=== PATIENT | female | born 2000 | race Caucasian/White ===

== ENCOUNTER 2022-03-06 13:29 | Emergency (ER) | payer OTHER, SELFPAY ==
[2022-03-06 13:35] VITALS: BP 103/67; PULSE 98; RESP 16; TEMP 36.9; O2SAT 100
--- NOTE | 2022-03-06 13:54 | ED.URI ---
HPI - URI/Sore Throat General Chief Complaint: Upper Respiratory Infection Stated Complaint: Sinus pain Time Seen by Provider: 03/06/22 13:54 Source: patient, RN notes reviewed and old records reviewed Mode of arrival: ambulatory Limitations: no limitations History of Present Illness HPI Narrative: 21-year-old female who presents to [facility] with complaints of sinus infection symptoms since Thursday. Patient reports that she has clear nasal drainage she has pressure to her face and frontal headache, has had temperature up to 100.4F, her ears feel clogged, her teeth hurt and she has dry cough, and some some sore throat. Patient reports that she has taken some Tylenol for her temperature and headache symptoms. She does voice history of sinusitis in the past with similar symptoms. Patient reports that she has had COVID vaccinations. MD elicited complaint: fever (up to 100.4), cough, sore throat, rhinorrhea, nasal congestion, sinus pain and other (headache and ear pressure) Pertinent past history: sinusitis Onset (ago): day(s) (3) Consistency: progressively worsening Severity: moderate Description of mucous: clear Able to tolerate fluids by mouth: Yes Exacerbating factors: swallowing and leaning forward Relieving factors: nothing Treatments prior to arrival: acetaminophen Related Data Allergies Allergy/AdvReac Type Severity Reaction Status Date / Time No Known Allergies Allergy Verified 03/06/22 13:34 Review of Systems Review of Systems: CONSTITUTIONAL: reports low grade fever highest of 100.4F, chills, or sweats. EYES: Denies visual changes, redness, or discharge. ENT: Positive rhinorrhea, congestion, sore throat, ear pressure CARDIOVASCULAR: Denies chest pain, palpitations, or edema. RESPIRATORY: Positive for dry cough denies dyspnea. GASTROINTESTINAL: Denies abdominal pain, nausea, vomiting, or diarrhea. GENITOURINARY: Denies dysuria or hematuria. SKIN: Denies rash or itching. MUSCULOSKELETAL: Denies back pain, joint pain, or myalgia. NEUROLOGIC: frontal headache,denies any numbness, or weakness. PSYCHIATRIC: Denies anxiety or depression. All systems reviewed & are unremarkable except as noted in HPI and below PMFSH Past Medical History Medical History (Updated 03/06/22 @ 14:24 by Vanessa Nova NP) Fracture of left foot Strain of hip flexor Surgical History Surgical History (Updated 03/06/22 @ 14:25 by Vanessa Nova NP) No history of previous surgery Social History Social History (Updated 03/06/22 @ 14:25 by Vanessa Nova NP) Smoking status: Never smoker Alcohol intake: current Alcohol use details: social but rare Substance use type: does not use Living arrangements: with family Gender identity (if verbalized by the patient): Female Comments At time of signature, agree with nursing past medical, surgical, social and family history. There is no relevant family history pertinent to the presenting complaint Exam Narrative: GENERAL: Well-appearing, well-nourished, and in no acute distress. HEAD: Normocephalic, atraumatic. EYES: PERRLA and EOMI. ENT: Nares red with turbinates swollen and red, right side especially, clear rhinorrhea no epistaxis. Mucous membranes moist.TM's normal but with dull light reflex, throat red no lesions or exudates, tonsils minimal swelling noted, post nasal drainage present. NECK: Supple. no lymphadenopathy CHEST: Clear to auscultation. No respiratory distress. dry cough, SAO2 100% on room air, no tachypnea HEART: Regular rate and rhythm. No murmur heard. Normal peripheral pulses. ABDOMEN: Soft, nontender, nondistended, normal active bowel sounds. EXTREMITIES: Normal range of motion. No edema. SKIN: Warm, dry, no rash. NEURO: No focal deficits. Alert and oriented x3. Course Course Level of Care: Express Care Visit Vital Signs Vital signs: Vital Signs Temperature 36.9 C 03/06/22 13:35 Pulse Rate 98 03/06/22 13:35 Respiratory Rate 16 03/06/22 1
== END 2022-03-06 14:20 | disposition home or self-care (01) ==
PROVIDERS: Emergency Provider Registered Nurse
DX: J32.9 Chronic sinusitis, unspecified (principal)
CPT/HCPCS: 99203; G0463

== ENCOUNTER 2022-09-30 09:01 | Emergency (ER) | payer OTHER, SELFPAY ==
--- NOTE | 2022-09-30 09:08 | ED.URI ---
HPI - URI/Sore Throat General Chief Complaint: Upper Respiratory Infection Stated Complaint: COUGH/SOB/CHEST & LUNG PAIN Time Seen by Provider: 09/30/22 09:12 Source: patient and RN notes reviewed Mode of arrival: ambulatory Limitations: no limitations History of Present Illness HPI Narrative: 22 y/o female presents for complaints of a nonproductive cough and a sore throat for one week. Patient states that she has been coughing so hard that it resulted in her throat bleeding. Patient endorses subjective wheezing and shortness of breath stating that it is difficult to lay on her side. Cough worse at night and early in the morning. Patient denies fevers, diaphoresis, coughing up blood, N/V/D, palpitations, CP, or sinus congestion. She has attempted Mucinex and claritin with minimal relief. She took two at home COVID tests on Thursday that were negative. MD elicited complaint: cough Related Data Allergies Allergy/AdvReac Type Severity Reaction Status Date / Time No Known Allergies Allergy Verified 03/06/22 13:34 Review of Systems Review of Systems: CONSTITUTIONAL: Denies chills, sweats, or fever EYES: Denies visual changes, redness, or discharge ENT: Per HPI CARDIOVASCULAR: Denies chest pain, palpitations, edema RESPIRATORY: Reports nonproductive cough. GASTROINTESTINAL: Denies abdominal pain, nausea, vomiting, diarrhea PMFSH Past Medical History Medical History Fracture of left foot Strain of hip flexor Surgical History Surgical History No history of previous surgery Social History Social History Smoking status: Never smoker Alcohol intake: current Alcohol use details: social but rare Substance use type: does not use Gender identity (if verbalized by the patient): Female Exam Narrative: GENERAL: well-appearing EYES: PERRLA, conjunctivae clear ENT: Mucous membranes moist. TMs pearly chan with dull light reflex bilaterally; no tragal tenderness. Oropharynx erythematous without lesions or exudate, no drooling, no hoarseness, no trismus, uvula midline, tonsils +1 NECK: Supple. No lymphadenopathy CHEST: Faint wheezing to bilateral upper lobes. No rhonchi, rales, or stridor. No respiratory distress, speaks in full sentences. HEART: Regular rate and rhythm. No murmur heard. SKIN: Warm, dry, no rash. NEURO: Alert and oriented x3. PSYCH: Normal mood and affect Course Course Emergency Course: Patient is aware of diagnosis, understands and agrees to treatment plan. Anticipatory guidance given. Patient agrees to follow-up as directed and is aware of reasons to seek care at the emergency department. Portions of this record may have been created with voice recognition software Level of Care: Express Care Visit Vital Signs Vital signs: Vital Signs Temperature 99.1 F 09/30/22 09:09 Pulse Rate 68 09/30/22 09:09 Respiratory Rate 16 09/30/22 09:09 Blood Pressure 103/80 09/30/22 09:09 Pulse Oximetry 100 09/30/22 09:09 Temperature 99.1 F 09/30/22 09:09 Pulse Rate 68 09/30/22 09:09 Respiratory Rate 16 09/30/22 09:09 Blood Pressure 103/80 09/30/22 09:09 Pulse Oximetry 100 09/30/22 09:09 reviewed MDM - URI/Sore Throat MDM Narrative Medical decision making narrative: Patient is appropriate for outpatient treatment and follow up. Discussed s/s that would require ED referral. Patient agrees to establish with a PCP for close follow up. List of providers given to patient with d/c paperwork. Differential Diagnosis Differential diagnosis: Likely upper respiratory infection, sinusitis and viral infection Discharge Plan Discharge Clinical Impression: Cough Qualifiers: Cough type: acute Qualified Code(s): R05.1 - Acute cough Patient Disposition: Home, Self-Care Condition: Stable Instructions:
[2022-09-30 09:09] VITALS: BP 103/80; PULSE 68; RESP 16; TEMP 37.3; O2SAT 100
== END 2022-09-30 09:40 | disposition home or self-care (01) ==
PROVIDERS: Emergency Provider Nurse Practitioner Family
DX: R05.1 Acute cough (principal); R06.02 Shortness of breath
CPT/HCPCS: 99213; G0463

== ENCOUNTER 2023-01-25 08:40 | Emergency (ER) | payer OTHER, SELFPAY ==
[2023-01-25 09:24] VITALS: BP 109/71; PULSE 78; RESP 16; TEMP 36.4; O2SAT 100
--- NOTE | 2023-01-25 10:07 | ED.URI ---
HPI - URI/Sore Throat General Chief Complaint: Upper Respiratory Infection Stated Complaint: SORE THROAT/HEADACHE/BACK PAIN Time Seen by Provider: 01/25/23 10:07 Source: patient, RN notes reviewed and old records reviewed Mode of arrival: ambulatory Limitations: no limitations History of Present Illness HPI Narrative: 22 year old presents to [facility] care with complaints of reoccurring sore throat for the past 2.5 weeks with some sinus drainage, headache, and some facial pressure with right side worse than left. Patient reports that she has had a dry cough. Patient states that she has been COVID vaccinated and she also has had flu shot.Patient reports that she has taken some OTC sinus medication and also NyQuil MD elicited complaint: sore throat, rhinorrhea, nasal congestion and other (headache) Onset (ago): week(s) (2.5) Pain scale (0-10): 5 Able to tolerate fluids by mouth: Yes Treatments prior to arrival: cold medicine and other (NyQuil) Related Data Allergies Allergy/AdvReac Type Severity Reaction Status Date / Time No Known Allergies Allergy Verified 03/06/22 13:34 Review of Systems Review of Systems: CONSTITUTIONAL: Denies malaise, chills, sweats, or fever. EYES: Denies visual changes, redness, or discharge. ENT: Reports rhinorrhea, congestion, facial sinus pain, no otalgia, positive sore throat. CARDIOVASCULAR: Denies chest pain, palpitations, or edema. RESPIRATORY: Reports dry cough.? Denies dyspnea. GASTROINTESTINAL: Denies abdominal pain, nausea, vomiting, diarrhea SKIN: Denies rash or itching. MUSCULOSKELETAL: Denies myalgia. NEUROLOGIC:reports headache. All systems reviewed & are unremarkable except as noted in HPI and below PMFSH Past Medical History Medical History (Updated 01/26/23 @ 00:00 by Sriram Tiwari) Fracture of left foot Strain of hip flexor Surgical History Surgical History (Updated 01/26/23 @ 20:57 by Vanessa Nova NP) [place] teeth extracted Social History Social History Smoking status: Never smoker Alcohol intake: current Alcohol use details: social but rare Substance use type: does not use Living arrangements: with family Gender identity (if verbalized by the patient): Female Comments At time of signature, agree with nursing past medical, surgical, social and family history. There is no relevant family history pertinent to the presenting complaint Exam Narrative: GENERAL: Well-appearing, well-nourished, and in no acute distress. HEAD: Normocephalic EYES: PERRLA, conjunctivae clear ENT: Nares clear, turbinates edematous and erythematous, clear discharge. Mucous membranes moist. TM pearly chan with dull light reflex bilaterally; no tragal tenderness. Oropharynx erythematous without lesions. Tonsils mildly enlarged and without exudate, no drooling, no hoarseness, no trismus, uvula midline, post nasal drainage NECK: Supple. No lymphadenopathy CHEST: Clear to auscultation, breath sounds equal. No wheezing, rhonchi, rales, or stridor. No respiratory distress, speaks in full sentences.dry cough, SAO2 100% on room air HEART: Regular rate and rhythm. No murmur heard. SKIN: Warm, dry, no rash. NEURO: Alert and oriented x3. PSYCH: Normal mood and affect Course Course Emergency Course: Patient is aware of diagnosis, understands and agrees to treatment plan.? Anticipatory guidance given.? Patient agrees to follow-up as directed and is aware of reasons to seek care at the emergency department. Portions of this record may have been created with voice recognition software Level of Care: Express Care Visit Vital Signs Vital signs: Vital Signs Temperature 36.4 C L 01/25/23 09:24 Pulse Rate 78 01/25/23 09:24 Respiratory Rate 16 01/25/23 09:24 Blood Pressure 109/71 01/25/23 09:24 Pulse Oximetry 100 01/25/23 09:24 Temperature 36.4 C L 01/25/23 09:24 Pulse Rate 7
== END 2023-01-25 10:25 | disposition home or self-care (01) ==
PROVIDERS: Emergency Provider Registered Nurse
DX: J32.9 Chronic sinusitis, unspecified (principal); J02.9 Acute pharyngitis, unspecified
CPT/HCPCS: 99213; G0463

== ENCOUNTER 2023-05-03 19:08 | Emergency (ER) | payer OTHER, SELFPAY ==
[2023-05-03 19:31] VITALS: BP 124/71; PULSE 88; RESP 16; TEMP 36.8; O2SAT 100
--- NOTE | 2023-05-03 19:58 | ED.FEMALEGU ---
HPI - Female Genitourinary General Chief complaint: Vaginal Bleeding Stated complaint: vaginal bleeding Time Seen by Provider: 05/03/23 19:47 Source: patient and RN notes reviewed Mode of arrival: ambulatory Limitations: no limitations History of Present Illness HPI Narrative: Patient presents today complaining of vaginal bleeding that started this morning. She finished her last menstrual period 2 weeks ago, so this is abnormal for her. She has used 2 tampons today. She had some lower abdominal cramping yesterday, but none today. Denies any additional symptoms. She did a home test yesterday that was negative. Related Data Home Medications Medication Instructions Recorded Confirmed No Home Medications 05/03/23 05/03/23 Allergies Allergy/AdvReac Type Severity Reaction Status Date / Time No Known Allergies Allergy Verified 05/03/23 19:31 Review of Systems Review of Systems: CONSTITUTIONAL: Denies body aches, fever, chills, or sweats. EYES: Denies visual changes, redness, or discharge. ENT: Denies rhinorrhea, congestion, sore throat, or otalgia. CARDIOVASCULAR: Denies chest pain, palpitations, or edema. RESPIRATORY: Denies cough or dyspnea. GASTROINTESTINAL: Denies abdominal pain, nausea, vomiting, or diarrhea. GENITOURINARY: Denies dysuria or hematuria.+ vaginal bleeding SKIN: Denies rash, itching, or wounds. MUSCULOSKELETAL: Denies back pain, joint pain, or myalgia. NEUROLOGIC: Denies headache, numbness, tingling, or weakness. PSYCH: Denies depression or anxiety. [facility] Past Medical History Medical History (Updated 05/03/23 @ 20:06 by Elba Morrison, [facility], ) History of ovarian cyst Comments At time of signature, I have reviewed and agree with nursing past medical, surgical, social and family history unless otherwise noted. Please see nursing chart for further information. There is no relevant family history pertinent to the presenting complaint Exam Narrative: GENERAL: Well-appearing, well-nourished, and in no acute distress. HEAD: Normocephalic, atraumatic. EYES: EOMI. No redness or drainage. Conjunctivae normal. ENT: Mucous membranes pink and moist. NECK: Normal AROM. CHEST: No respiratory distress. Clear to auscultation. HEART: Regular rate and rhythm. No murmur appreciated. ABDOMEN: Soft, nontender, nondistended, normal active bowel sounds. MUSCULOSKELETAL: No bony tenderness. EXTREMITIES: Normal range of motion. No edema. SKIN: Warm, dry, no rash. Capillary refill normal. Normal skin turgor. NEURO: No focal deficits. Alert and oriented x3. Gait steady. PSYCH: Normal affect. No signs of depression or anxiety. Course Course Level of Care: Express Care Visit Vital Signs Vital signs: Vital Signs Temperature 98.3 F 05/03/23 19:31 Pulse Rate 88 05/03/23 19:31 Respiratory Rate 16 05/03/23 19:31 Blood Pressure 124/71 05/03/23 19:31 Pulse Oximetry 100 05/03/23 19:31 Temperature 98.3 F 05/03/23 19:31 Pulse Rate 88 05/03/23 19:31 Respiratory Rate 16 05/03/23 19:31 Blood Pressure 124/71 05/03/23 19:31 Pulse Oximetry 100 05/03/23 19:31 Reviewed. Pt has been instructed to follow up with her PCP regarding her elevated blood pressure today. MDM - Female Genitourinary MDM Narrative Medical decision making narrative: test negative, UA negative. Instructed patient to follow-up with an OBGYN if bleeding persists. At this time, she is not bleeding enough to warrant transfer to the ER for further evaluation. No prescription medications indicated at this time. Anticipatory guidance given. Differential Diagnosis Differential diagnosis: Likely dysmenorrhea and other (Abnormal uterine bleeding, miscarriage) Lab Data Attestation: I reviewed the patient's lab results. Labs: UCG Bedside Result Negative Reference Range: Negative Urine Glucose
== END 2023-05-03 20:10 | disposition home or self-care (01) ==
PROVIDERS: Emergency Provider Nurse Practitioner
DX: N93.9 Abnormal uterine and vaginal bleeding, unspecified (principal)
CPT/HCPCS: 81003; 81025; 99212; G0463

== ENCOUNTER 2023-11-30 14:21 | Emergency (ER) | payer OTHER, SELFPAY ==
[2023-11-30 14:32] VITALS: BP 120/63; PULSE 105; RESP 20; TEMP 36.9; O2SAT 100
--- NOTE | 2023-11-30 15:25 | ED.URI ---
HPI - URI/Sore Throat General Chief Complaint: Upper Respiratory Infection Stated Complaint: fever/ears/throat/headache Time Seen by Provider: 11/30/23 15:33 Source: patient, RN notes reviewed and old records reviewed Mode of arrival: ambulatory Limitations: no limitations History of Present Illness HPI Narrative: 23 year old female who presents to [facility] care with complaints of fever,chills, headache, nausea,cough with congestion, sore throat and body aches,for the past 3 days. Patient reports that highest temperature noted yesterday of 101.4F and has been taking Ibuprofen for her symptoms.Patient reports no known ill contacts. MD elicited complaint: fever, cough, sore throat, rhinorrhea, nasal congestion and other (body aches,headaches) Onset (ago): day(s) (3) Pain scale (0-10): 7 Able to tolerate fluids by mouth: Yes Exacerbating factors: swallowing Treatments prior to arrival: ibuprofen Related Data Home Medications Medication Instructions Recorded Confirmed No Home Medications 05/03/23 11/30/23 Allergies Allergy/AdvReac Type Severity Reaction Status Date / Time No Known Allergies Allergy Verified 11/30/23 15:21 Review of Systems Review of Systems: CONSTITUTIONAL: Reports malaise, chills, sweats, or fever. EYES: Denies visual changes, redness, or discharge. ENT: Reports rhinorrhea, congestion,no sinus pain,no otalgia and positive for sore throat. CARDIOVASCULAR: Denies chest pain, palpitations, or edema. RESPIRATORY: Reports cough.? Denies dyspnea. GASTROINTESTINAL: Denies abdominal pain, nausea, vomiting, diarrhea SKIN: Denies rash or itching. MUSCULOSKELETAL:Reports myalgia. NEUROLOGIC: Reports headache. All systems reviewed & are unremarkable except as noted in HPI and below PMFSH Past Medical History Medical History Fracture of left foot History of ovarian cyst Strain of hip flexor Surgical History Surgical History [place] teeth extracted Social History Social History Smoking status: Never smoker Alcohol intake: current Alcohol use details: social but rare Substance use type: does not use Living arrangements: with family Gender identity (if verbalized by the patient): Female Comments At time of signature, agree with nursing past medical, surgical, social and family history. There is no relevant family history pertinent to the presenting complaint Exam Narrative: GENERAL: Ill-appearing, well-nourished, and in no acute distress. HEAD: Normocephalic EYES: PERRLA, conjunctivae clear ENT: Nares clear, turbinates edematous and erythematous, clear discharge. Mucous membranes moist. TM pearly chan with dull light reflex bilaterally; no tragal tenderness. Oropharynx erythematous without lesions. Tonsils enlarged and with white exudate, no drooling, no hoarseness, no trismus, uvula midline.post nasal drainage noted NECK: Supple. No lymphadenopathy CHEST: Clear to auscultation, breath sounds equal. No wheezing, rhonchi, rales, or stridor. No respiratory distress, speaks in full sentences.Cough,SAO2 100% on room air HEART: Regular rate and rhythm. No murmur heard. SKIN: Warm, dry, no rash. NEURO: Alert and oriented x3. PSYCH: Normal mood and affect Course Course Emergency Course: Patient is aware of diagnosis, understands and agrees to treatment plan.? Anticipatory guidance given.? Patient agrees to follow-up as directed and is aware of reasons to seek care at the emergency department. Portions of this record may have been created with voice recognition software Level of Care: Express Care Visit Vital Signs Vital signs: Vital Signs Temperature 36.9 C 11/30/23 14:32 Pulse Rate 105 H 11/30/23 14:32 Respiratory Rate 20 11/30/23 14:32 Blood Pressure 120/63 11/30/23 14:
== END 2023-11-30 15:48 | disposition home or self-care (01) ==
PROVIDERS: Emergency Provider Registered Nurse
DX: J10.1 Influenza due to other identified influenza virus with other respiratory manifestations (principal); Z20.822 Contact with and (suspected) exposure to COVID-19
CPT/HCPCS: 87081; 87426; 87804; 87880; 99213; C9803; G0463

== ENCOUNTER 2025-04-27 17:24 | Emergency (ER) | payer OTHER, SELFPAY ==
[2025-04-27 17:41] VITALS: BP 151/92; PULSE 104; RESP 16; TEMP 36.3; O2SAT 100
--- NOTE | 2025-04-27 17:53 | ED.WOUNDLAC ---
HPI - Wound/Laceration General Chief Complaint: Wound/Laceration Stated Complaint: cut on ankle Time Seen by Provider: 04/27/25 17:53 Source: patient Mode of arrival: ambulatory Limitations: no limitations History of Present Illness HPI narrative: 24-year-old female presented for complaint of wound to the right outer ankle sustained 3 days ago. Says dog leashes got twisted around the ankle. Since then she has been cleansing the site with soap and water and wound spray. Denies active drainage. Denies numbness, tingling, weakness of the foot. Related Data Allergies Allergy/AdvReac Type Severity Reaction Status Date / Time No Known Allergies Allergy Verified 04/27/25 17:41 Review of Systems Review of Systems: CONSTITUTIONAL: Denies body aches, fever, chills, or sweats. EYES: Denies visual changes, redness, or discharge. ENT: Denies rhinorrhea, congestion CARDIOVASCULAR: Denies chest pain, palpitations, or edema. RESPIRATORY: Denies cough or dyspnea. GASTROINTESTINAL: Denies abdominal pain, nausea, vomiting, or diarrhea. SKIN: per HPI MUSCULOSKELETAL: Denies back pain, joint pain, or myalgia. NEUROLOGIC: Denies headache, numbness, tingling, or weakness. [facility] Past Medical History Medical History Fracture of left foot History of ovarian cyst Strain of hip flexor Surgical History Surgical History [place] teeth extracted Social History Social History Smoking status: Never smoker Alcohol intake: current Alcohol use details: social but rare Substance use type: does not use Living arrangements: with family Gender identity (if verbalized by the patient): Female Comments At time of signature, I have reviewed and agree with nursing past medical, surgical, social and family history unless otherwise noted. Please see nursing chart for further information. There is no relevant family history pertinent to the presenting complaint Exam Narrative: GENERAL: Well-appearing HEAD: Normocephalic EYES: conjunctivae clear, and EOMI. ENT: Mucous membranes moist. Oropharynx without edema, erythema or lesions. Irregular dry superficial laceration to the nose, pt says if from cat scratch. NECK: Supple. No lymphadenopathy CHEST: Clear to auscultation. HEART: Regular rate and rhythm. SKIN: Warm, dry. Right lateral ankle with 9 cm linear abrasion with mild surrounding erythema, wound bed yellow, dry, appears healing. NEURO: Alert and oriented x3. Course Course Emergency Course: Patient is aware of diagnosis, understands and agrees to treatment plan. Anticipatory guidance given. Patient agrees to follow-up as directed and is aware of reasons to seek care at the emergency department. Portions of this record may have been created with voice recognition software Level of Care: Express Care Visit Vital Signs Vital signs: Vital Signs Temperature 97.4 F L 04/27/25 17:41 Pulse Rate 104 H 04/27/25 17:41 Respiratory Rate 16 04/27/25 17:41 Blood Pressure 151/92 H 04/27/25 17:41 Pulse Oximetry 100 04/27/25 17:41 Oxygen Delivery Room Air 04/27/25 17:41 Temperature 97.4 F L 04/27/25 17:41 Pulse Rate 104 H 04/27/25 17:41 Respiratory Rate 16 04/27/25 17:41 Blood Pressure 151/92 H 04/27/25 17:41 Pulse Oximetry 100 04/27/25 17:41 Oxygen Delivery Room Air 04/27/25 17:41 Reviewed MDM - Wound/Laceration MDM Narrative Medical decision making narrative: Discussed physical exam findings; Dry laceration to the right lateral ankle. Will send antibiotics.. Advised supportive measures and signs/symptoms to go to the ER. Pt is appropriate for outpt treatment and f/u. Differential Diagnosis Differential diagnosis: Likely laceration, abscess, abrasion and avulsion of skin Discharge Plan Discharge Clinical Impression: Skin abrasion Patient Disposition: Home Condition: Stable Instructions: Antibiotic Form, Laceration (ED) Additional Instructions: Keep the area clean and dry - cleanse with warm water and mild soap and allow to fully dry. Ok to apply neosporin to the site Keep it open to air (no bandages) Take antibiotic as directed Watch for worsening symptoms including pain, redness, swelling, streaking, pus/drainage, fever. Go to the ER with any of these symptoms or concerns. Follow up with primary care provider in 1 week as needed. Patient Language: Irish Prescriptions: New amoxicillin-pot clavulanate 875-125 mg tablet 1 tablet PO Q12H 7 Days Qty: 14 0RF Follow-up/Referrals: PHYSICIAN,[facility] [Primary Care Provider] - Time of Disposition: 17:57
== END 2025-04-27 18:02 | disposition home or self-care (01) ==
PROVIDERS: Emergency Provider Nurse Practitioner Family
DX: S90.511A Abrasion, right ankle, initial encounter (principal); X58.XXXA Exposure to other specified factors, initial encounter
CPT/HCPCS: 99213; G0463